=== PATIENT | female | born 1975 | race Caucasian/White ===

== ENCOUNTER 2017-03-25 09:11 | Day surgery (SDC) | payer BC, OTHER ==
--- NOTE | 2017-03-15 11:16 | HP ---
Admitting History and Physical - Primary Care Physician PCP: Deion Guadalupe - Admission Chief Complaint: right chest mass History of Present Illness: 41 yo female S/P bilateral nipple sparing mastectomy (2014), reports an abnormality under the right nipple. Patient had MRI and US which was wnl, and a small LN (?) in the 9 oclock position 3 cm FN. Patient is now presenting for removal of the density and reconstruction by plastics. History Source: Patient Limitations to Obtaining History: No Limitations - Past Medical History ...LMP: 01/03/15 Endocrine: Yes: Hypothyroidism - Past Surgical History Past Surgical History: Yes: , Mastectomy (bilateral mastectomy 2014) Additional Past Surgical History: bilateral augmentation 1995 - Smoking History Smoking history: Never smoked Have you smoked in the past 12 months: No - Alcohol/Substance Use Hx Alcohol Use: No Home Medications - Allergies Allergies/Adverse Reactions: Allergies Allergy/AdvReac Type Severity Reaction Status Date / Time No Known Drug Allergies Allergy Verified 01/22/15 10:14 seasonal Allergy Uncoded 01/22/15 10:14 - Home Medications Home Medications: Ambulatory Orders Lisdexamfetamine Dimesylate [Vyvanse] 60 mg PO DAILY 01/22/15 Multivitamins [Tab-A-Vit -] 1 tab PO DAILY 01/22/15 Thyroid,Pork [Medina Thyroid] 90 mg PO DAILY 01/22/15 Family Disease History - Family Disease History Family Disease History: CA: Mother (breast cancer) Other Family History: maternal greast aunt x 2 with breast cancer 40s. maternal uncle-gastric cancer. maternal GF-prostate cancer Review of Systems - Review of Systems Constitutional: reports: No Symptoms Cardiovascular: reports: No Symptoms Respiratory: reports: No Symptoms Physical Examination Constitutional: Yes: Well Nourished, Calm Breast(s): Yes: Other (Well healed mastectomy scars bilaterally. No suspicious masses or adenopathy noted bilaterally. Changes c/w scarring noted under nipple areola complex.) Problem List - Problems (1) Breast mass, right Code(s): N63 - UNSPECIFIED LUMP IN BREAST (2) H/O bilateral mastectomy Code(s): Z90.13 - ACQUIRED ABSENCE OF BILATERAL BREASTS AND NIPPLES (3) BRCA gene mutation positive Code(s): Z15.01 - GENETIC SUSCEPTIBILITY TO MALIGNANT NEOPLASM OF BREAST Z15.02 - GENETIC SUSCEPTIBILITY TO MALIGNANT NEOPLASM OF OVARY Assessment/Plan Plan: Right exc bx of retroareolar mass
[2017-03-25] MEDS ORDERED: SCOPOLAMINE HYDROBROMIDE 1 PATCH PATCH.TD72 ONE (11:06)
[2017-03-25] MEDS ORDERED: DESFLURANE GAS 240 ML BOTTLE IH ONE (11:07)
[2017-03-25] MEDS ORDERED: MIDAZOLAM HCL 2 MG/2 ML SINGLE DOSE VIAL ONE ×2 (11:11)
[2017-03-25] MEDS ORDERED: ROCURONIUM BROMIDE 50 MG/5 ML VIAL ONE (11:19)
[2017-03-25] MEDS ORDERED: PROPOFOL 20 ML ONE ×2 (11:19→12:32)
[2017-03-25] MEDS ORDERED: ceFAZolin SODIUM 1 GM VIAL IVPB ONE ×2 (11:22→12:30)
[2017-03-25] MEDS ORDERED: ceFAZolin SODIUM 1 GM VIAL ONE (11:27)
[2017-03-25] MEDS ORDERED: LIDOCAINE HCL 2% JELLY 10 ML CARTRIDGE ONE (11:40)
[2017-03-25] MEDS ORDERED: LIDOCAINE HCL 0.5% EPINEPHRINE 1:200,000 50 ML VIAL IJ ONE (11:40)
[2017-03-25] MEDS ORDERED: LIDOCAINE HCL 1%, 10 MG/ML (20ML VIAL) ONE (11:40)
[2017-03-25] MEDS ORDERED: EPINEPHrine/PF 1 MG/1 ML (1:1,000) AMPULE ONE (11:40)
[2017-03-25] MEDS ORDERED: LIDOCAINE HCL 1%, 10 MG/ML (20ML VIAL) INF ONE (12:00)
[2017-03-25] MEDS ORDERED: EPINEPHrine/PF 1 MG/1 ML (1:1,000) AMPULE SQ ONE (12:00)
[2017-03-25] MEDS ORDERED: KETOROLAC TROMETHAMINE 30 MG/1 ML VIAL IVPUSH PRN (12:11)
[2017-03-25] MEDS ORDERED: ONDANSETRON 4 MG/2 ML VIAL IVPB PRN (12:11)
[2017-03-25] MEDS ORDERED: DEXTROSE 5%-0.45% SALINE 1,000 ML IV SCH (12:15)
[2017-03-25] MEDS ORDERED: BACITRACIN 50,000 UNITS VIAL NR ONE (12:30)
[2017-03-25] MEDS ORDERED: GENTAMICIN SO4 80 MG/2 ML VIAL IVPB ONE (12:30)
[2017-03-25] MEDS ORDERED: GENTAMICIN SO4 80 MG/2 ML VIAL ONE (12:50)
[2017-03-25] MEDS ORDERED: NEOSTIGMINE METHYLSULFATE 0.5 MG/ML - 10 ML MDV ONE (13:50)
[2017-03-25] MEDS ORDERED: PROMETHAZINE HCL 25 MG/1 ML VIAL IVPUSH PRN (14:09)
[2017-03-25] MEDS ORDERED: oxyCODONE HCL 5 MG TABLET PO PRN (14:09)
[2017-03-25] MEDS ORDERED: SIMETHICONE 80 MG TAB.CHEW (FP) ONE (14:13)
[2017-03-25 14:39] VITALS: TEMP 97.5
[2017-03-25] MEDS ORDERED: ONDANSETRON 4 MG/2 ML VIAL ONE (14:53)
[2017-03-25 16:35] VITALS: BP 124/83; PULSE 66
--- NOTE | 2017-03-27 08:44 | OP ---
DATE OF OPERATION: 03/25/2017 PREOPERATIVE DIAGNOSIS: Right retroareolar breast mass. POSTOPERATIVE DIAGNOSIS: Right retroareolar breast mass. PROCEDURE: Right breast retroareolar excision biopsy. PRIMARY SURGEON: Rosalio Guadalupe MD INTERNAL MEDICINE NURSE PRACTITIONER: ALLAN Jacob PLASTIC SURGEON FOR IMPLANT EXCHANGE AND FAT GRAFTING: Rosalio Frias MD ANESTHESIA: General endotracheal. COMPLICATIONS: None. Briefly, the patient is a 41-year-old G1, P1, premenopausal white female with [place], [place], and [place] heritage. She has a strong family history with her mother who had breast cancer at age 49 and 2 maternal great-aunts with breast cancer at less than age 50. The patient actually tested BRCA negative but did have a VUS. The patient decided on undergoing bilateral nipple-sparing mastectomies and direct-implant reconstructions which was performed back in December 2014. She had an implant exchange in June 2015. She has been doing well, but then felt a slight density underneath her right nipple-areolar complex. MRI just showed benign changes with a probable benign lymph node in the right breast 9 o'clock region. The patient was seen in exam and did have this area of some thickening in the right breast retroareolar region, and it was felt that this should be excised. She was seen by Plastic Surgery who felt that an implant exchange and possible fat grafting would also be needed. Patient was brought in for the procedure on March 25, 2017, at [facility]. In the holding area, side verification was made, and informed consent was obtained. She was marked preoperatively by the plastic surgeon. DESCRIPTION OF PROCEDURE: She was brought into the operating room and laid on the OR table in the supine position. Venodynes were placed on the lower extremities. She received a gram of Ancef prior to incision. She underwent general endotracheal anesthesia. Both breasts were sterilely prepped and draped in the usual fashion, as well as the abdomen and upper thighs for liposuction. The procedure was performed using the previous inframammary incision. Incision was opened, the implant was removed, and we approached this retroareolar region from inside by incising into the capsule into the retroareolar region of the right nipple-areolar complex. There was definitely some thickened breast tissue in this area, which was grasped, and this was completely removed from the right breast retroareolar region to remove the palpable area. The specimen was marked with a suture to dae the anterior aspect of the specimen and sent to Pathology in formalin. Hemostasis was achieved. At this point, Dr. Frias became the primary surgeon to perform the bilateral liposuction procedures, and he removed the implant on the left as well. He will be exchanging the implants. He will then be performing fat grafting. He did use a small piece of AlloDerm to place underneath the right retroareolar region to prevent indentation in this area after we excised that palpable area. All wounds will be closely separately by Plastic Surgery. Estimated blood loss was minimal, and all sponge and needle counts are correct at this point in the case. The patient will be recovered postoperatively and sent home the same day. She will follow up in the office in 1 week for formal wound pathology check. ROSALIO GUADALUPE M.D. [id number]
--- NOTE | 2017-03-27 13:37 | OP ---
DATE OF OPERATION: 03/25/2017 LOCATION: [facility]. SURGEON: Rosalio Frias MD PREOPERATIVE DIAGNOSES: 1. Bilateral acquired chest wall deformity, status post bilateral mastectomy. 2. Asymmetry of reconstructed chest wall. 3. Mechanical complication of breast implants. 4. Reconstruction of right defect post mastectomy. POSTOPERATIVE DIAGNOSES: 1. Bilateral acquired chest wall deformity, status post bilateral mastectomy. 2. Asymmetry of reconstructed chest wall. 3. Mechanical complication of breast implants. 4. Reconstruction of right defect post mastectomy. OPERATIVE PROCEDURE: 1. Right breast reconstruction utilizing other technique. 2. Left breast reconstruction utilizing other technique. 3. Right breast capsulotomy, removal and replacement of right breast implant. 4. Left breast capsulotomy, removal and replacement of left breast implant. 5. Correction of nipple-areolar complex deformity post excision with acellular dermal matrix AlloDerm. OPERATIVE INDICATION: Patient is a young woman of 41 years old, who was brought to the operating room by Dr. Rosalio Guadalupe for excision of a block of tissue on the right breast through the previous mastectomy scar. The patient required reconstruction of this defect on the right chest wall after excision by Dr. Guadalupe and also correction of her gross asymmetry of the chest wall with the above procedures. The risks and benefits of surgical versus nonsurgical alternatives as well as the material complications of the procedure were described on multiple occasions preoperatively including in the holding area this morning after the patient was marked in the standing position with Dr. Guadalupe. All questions were asked and answered. OPERATIVE PROCEDURE IN DETAIL: Patient was taken to the operating room by Dr. Guadalupe and nh. She was placed supine on the operating room table. Both arms were extended and padded. Venodyne boots were placed, and all bony prominences were padded. The entire chest wall and abdominal region were prepped and draped in the usual fashion for breast reconstructive surgery. Sterile drapes were placed in the usual fashion, and then, timeout was called. At this point, we began the procedure by injecting the mastectomy scar on the right breast with 1% local lidocaine anesthesia with 1:100,000 epinephrine, and then, Dr. Guadalupe with my assistance performed an incision down through the skin to the subcutaneous tissue, through the subcutaneous tissue, down to the underlying capsule. I then opened the capsule to the breast implant, and the implant itself was removed and sent for pathologic diagnosis. At this point, the procedure was turned over to Dr. Guadalupe with my assistance, and excision of the breast tissue was carried out. This will be dictated under separate cover. After completion of the procedure and hemostasis by Dr. Guadalupe in the retroareolar area, a defect of approximately 8 x 8 cm was seen in the central portion below the nipple areolar complex. Defect in the capsule in the pectoralis major muscle junction was visualized. At this point, a sheath of AlloDerm contour perforated medium acellular dermal matrix was brought into the field after being rehydrated in a sterile fashion on the back table. A piece of this material was trimmed to the size matching the defect and then placed into the retroareolar defect and sutured in position using 3-0 Vicryl sutures in interrupted fashion on the deep tissues. Once this was accomplished and hemostasis meticulously obtained, the capsule pectoralis major junction was closed with the same 3-0 Vicryl sutures in interrupted fashion and approximating the tissues for reconstructive purposes. When this was accomplished, attention was turned to the flank. An incision was made on the right and left flanks, down through the skin, into the subcutaneous tissue, down to the underlying deep fascia. At this point, tissue was harvested for reconstructive purposes from the deep fascial region on both sides. This tissue was transferred to the back table, washed, cleansed, and prepared for reconstruction. At this point, attention was turned back to the breast. Capsulotomy was performed in order to accommodate the new implant on the right breast. The implant was chosen of a Natrelle Inspira cohesive breast implant of style SCX 580 mL volume. This was placed into the retropectoral pocket and positioned in the adequate sizing and space. Tissue was then transferred to the right breast in the central, superior, medial, and inferior portions of the right breast and showed good shape and contour. The opposite mastectomy scar was then incised down through the skin, to subcutaneous tissue, down through the subcutaneous tissue to the underlying capsule. I then performed a capsulotomy and removed the implant. This was also sent for pathologic diagnosis. After copious irrigation of both wounds with triple-antibiotic solution, the capsule was modified in the same fashion as the opposite side to accept the new implant. On the left side, a Natrelle Inspira cohesive breast implant of style SCX 615 mL volume was chosen to correct the deformities. This was placed into the retropectoral space using the Sanders Funnel. This funnel had been used on the right side, in addition. Once the implants were in place, tissue was then also transferred to the left breast in the superior, medial, and central portions of the left breast. Good symmetry was seen in a sitting position at this point. Both wounds were closed, and capsulorrhaphy was performed using 3-0 Monocryl sutures in the deep tissue, down to the inframammary fold, elevating the left inframammary fold. At this point, watertight closures were accomplished on both right and left breasts in the deep capsular area, and a second layer using 3-0 PDS sutures in the deep tissue was carried out in a deep dermal fashion bilaterally. The skin and subcutaneous tissue was advanced and closed upon itself using 4-0 Biosyn in a subcuticular fashion, and then, the donor sites were closed with interrupted 4-0 sutures. All wounds were dressed sterilely with Dermabond and Steri-Strips. She tolerated the procedure well. She was awakened, extubated, and transferred to recovery room in satisfactory condition. ROSALIO FRIAS M.D. [id number]
--- NOTE | 2017-03-29 15:12 | PATH ---
Surgical Pathology Report Patient Name: RONNI MARTINEZ [facility]. Rec. #: [id number] /Age/Gender: 1975 (Age: 41) / F Account: [id number] Location: [facility] Taken: 03/25/2017 Received: 03/26/2017 Reported: 03/29/2017 Physicians: Jez Puga Specimen(s) Received A: RIGHT BREAST RETROARELAR MASS B: RIGHT AND LEFT IMPLANTS Clinical History Right nipple areola complex density History of breast cancer Final Diagnosis A. BREAST, RIGHT, RETROAREOLAR MASS, EXCISION: BENIGN BREAST TISSUE WITH FIBROCYSTIC CHANGE WITH USUAL AND PAPILLARY DUCTAL HYPERPLASIA, ADENOSIS, COLUMNAR CELL CHANGE CYSTIC APOCRINE METAPLASIA DUCTS DILATATION, CYSTS FORMATION AND STROMAL FIBROSIS. NO MALIGNANCY IDENTIFIED. B. BREAST IMPLANTS, LEFT AND RIGHT: BREAST IMPLANTS (GROSS EXAM). Electronically Signed Julian Yanes M.D. Gross Description A. Received in formalin labelled "retroareolar mass right breast suture villasenor anterior" is a 4.7 x 3.6 x to 1.6 cm portion of lowe and yellow fibrofatty tissue with a suture marking the anterior margin. The anterior margin is inked blue. The deep margin is inked black. Cut surface reveals lowe fibrous tissue and yellow adipose tissue. No distinct lesion is identified. Sectioned and totally sequentially submitted in 8 cassettes. Time to formalin fixation: not indicated Total formalin fixation time:~ 12-48 hours. B. Received dry labeled "right and left breast implant" are 2 gel-filled medical transcription supervisor is consistent with breast implants. Each of these measures 13.5 x 13.5 x 5 cm. Each of these is designated [employer] 560cc style SRX lot [id number]. This is for gross identification only. [facility]/03/26/2017 [facility]/03/26/2017
== END 2017-03-25 16:20 | disposition home or self-care (01) ==
LOC: JASU-SURG 09:11
PROVIDERS: ATTEND Surgery Surgical Oncology
PROC: 0HUV0JZ Supplement Bilateral Breast with Synthetic Substitute, Open Approach (ICD-10-PCS; 2017-03-25)
PROC: 0HPU0JZ Removal of Synthetic Substitute from Left Breast, Open Approach (ICD-10-PCS; 2017-03-25)
PROC: 0HPT0JZ Removal of Synthetic Substitute from Right Breast, Open Approach (ICD-10-PCS; 2017-03-25)
PROC: 0HUU0JZ Supplement Left Breast with Synthetic Substitute, Open Approach (ICD-10-PCS; 2017-03-25)
PROC: 0HUT0JZ Supplement Right Breast with Synthetic Substitute, Open Approach (ICD-10-PCS; 2017-03-25)
PROC: 0HBT0ZX Excision of Right Breast, Open Approach, Diagnostic (ICD-10-PCS; principal; 2017-03-25 11:00)
PROC: 0HRV07Z Replacement of Bilateral Breast with Autologous Tissue Substitute, Open Approach (ICD-10-PCS; 2017-03-25 11:00)
PROC: 0HNV0ZZ Release Bilateral Breast, Open Approach (ICD-10-PCS; 2017-03-25 11:00)
DX: N60.11 Diffuse cystic mastopathy of right breast (principal); N60.31 Fibrosclerosis of right breast; M95.4 Acquired deformity of chest and rib; Z90.13 Acquired absence of bilateral breasts and nipples; Z85.3 Personal history of malignant neoplasm of breast; N65.1 Disproportion of reconstructed breast; T85.41XA Breakdown (mechanical) of breast prosthesis and implant, initial encounter; Y83.8 Other surgical procedures as the cause of abnormal reaction of the patient, or of later complication, without mention of misadventure at the time of the procedure; Y92.89 Other specified places as the place of occurrence of the external cause; N64.89 Other specified disorders of breast
CPT/HCPCS: 84703; 88300-TC; 88307-TC; 94760